=== PATIENT | female | born 1945 | race Caucasian/White ===

== ENCOUNTER → 2024-05-31 07:01 | Outpatient (REF) | payer MEDICARE, OTHER, SELFPAY ==
[2024-05-31 07:57] LABS: ALT (SGPT) 13 U/L (0-35); AST (SGOT) 24 U/L (14-36); Albumin 4.1 g/dl (3.5-5.0); Alkaline Phosphatase 93 U/L (38-126); Blood Urea Nitrogen 18 mg/dl (7-17); Calcium 9.7 mg/dl (8.4-10.2); Carbon Dioxide 27 mmol/L (22-30); Chloride 107 mmol/L (98-107); Glucose 93 mg/dl (70-99); HDL Cholesterol 73 mg/dl; LDL Cholesterol, Calculated 64 mg/dl; Potassium 3.7 mmol/L (3.5-5.1); Sodium 142 mmol/L (135-145); Total Bilirubin 0.9 mg/dl (0.2-1.3); Total Cholesterol 154 mg/dl (50-199); Total Protein 6.4 g/dl (6.3-8.2); Triglyceride 89 mg/dl (10-149); Very Low Density Lipoprotein 17 mg/dl (0-30); eGFR > 60.00
[2024-05-31 08:54] LABS: % Basophils 1.1 % (0-2); % Eosinophils 3.5 % (0-6); % Immature Granulocytes 0.3 % (0-0.5); % Lymphocytes 24.8 % (20.5-51.1); % Monocytes 10.8 % (1.7-9.3); % Neutrophils 59.5 % (42.2-75.2); Absolute Basophils 0.1 10^3/uL (0-0.2); Absolute Eosinophils 0.3 10^3/uL (0-0.7); Absolute Lymphocytes 1.8 10^3/uL (1.2-3.4); Absolute Monocytes 0.8 10^3/uL (0.1-0.6); Absolute Neutrophils 4.4 10^3/uL (1.4-6.5); Hematocrit 40.8 % (37.0-47.0); Hemoglobin 13.5 g/dL (12.0-16.0); Mean Corp Hgb Conc. 33.1 g/dL (33.0-37.0); Mean Corpuscular Hgb 29.8 pg (27.0-31.0); Mean Corpuscular Volume 90.1 fL (81.0-99.0); Mean Platelet Volume 9.9 fL (7.4-10.4); Nucleated Red Blood Cells % 0 %; Platelet Count 224 10^3/uL (130-400); Red Blood Cell Count 4.53 10^6/uL (4.20-5.40); Red Cell Dist. Width 14.4 % (11.5-14.5); White Blood Cell Count 7.4 10^3/uL (4.8-10.8)
== END ==
LOC: REG 07:01
PROVIDERS: ATTENDING PHYSICIAN Internal Medicine
DX: I10 Essential (primary) hypertension (principal); F32.0 Major depressive disorder, single episode, mild; H35.30 Unspecified macular degeneration; Z00.00 Encounter for general adult medical examination without abnormal findings
CPT/HCPCS: 36415; 80053; 80061; 85025

== ENCOUNTER 2024-06-19 12:55 | Inpatient (IN) | payer MEDICARE, OTHER, SELFPAY ==
[2024-06-19] VITALS (23 sets, daily range): BP systolic 86–149; BP diastolic 44–90; BMI 17.7
[2024-06-19] MEDS: TORADOL 15 MG IV (10:42)
[2024-06-19 10:44] LABS: % Basophils 0.5 % (0-2); % Eosinophils 1.6 % (0-6); % Immature Granulocytes 0.3 % (0-0.5); % Lymphocytes 13.2 % (20.5-51.1); % Neutrophils 70.4 % (42.2-75.2); Absolute Basophils 0.1 10^3/uL (0-0.2); Absolute Eosinophils 0.2 10^3/uL (0-0.7); Absolute Lymphocytes 1.4 10^3/uL (1.2-3.4); Absolute Monocytes 1.5 10^3/uL (0.1-0.6); Absolute Neutrophils 7.5 10^3/uL (1.4-6.5); Hematocrit 40.5 % (37.0-47.0); Hemoglobin 13.6 g/dL (12.0-16.0); Mean Corp Hgb Conc. 33.6 g/dL (33.0-37.0); Mean Corpuscular Hgb 29.6 pg (27.0-31.0); Mean Platelet Volume 10.5 fL (7.4-10.4); Nucleated Red Blood Cells % 0 %; Platelet Count 221 10^3/uL (130-400); Red Cell Dist. Width 14.2 % (11.5-14.5); White Blood Cell Count 10.6 10^3/uL (4.8-10.8)
[2024-06-19] MEDS: DUONEB 3 ML INH (10:44)
--- NOTE | 2024-06-19 10:51 | ED.GENMED ---
History of Present Illness
General
Chief Complaint: Breathing Problem
Time Seen by Provider: 06/19/24 10:10
History of Present Illness
History of Present Illness:
79-year-old female with history of aortic stenosis and hypertension presents to the emergency department for evaluation of difficulty breathing that began this morning. She apparently developed a sore throat and a dry cough 2 days ago and over the
past 2 days has progressively worsened. Cough is productive of purulent sputum. Denies any fevers or chills. Denies any chest pain or upper back pain. No ill contacts at home. And route by EMS significant rhonchi were noted and 3 sublingual
nitroglycerin were given. On arrival the patient is hypotensive.
Past History
Past History
ED Past Medical History: HTN, Psychiatric (anxiety) and Other (Glaucoma/macular degeneration)
ED Past Surgical History: Orthopedic (elbow fracture repair)
Patient has exhibited threatening behavior?: No
PSI?: No
Social History
Tobacco: Non-smoker
Alcohol: None
Drug: None
Personal:
Living: with family
Employment: Retired
Review of Systems
Review of Systems
Allergies reviewed?: Yes
All Other Systems: ROS reviewed and negative except as documented in HPI and ROS
Phy Exam
Physical Exam
Physical Exam:
GEN: Ill-appearing, tachypneic with respiratory distress
Eyes: PERRLA, EOMs intact, no scleral icterus
HENT: NCAT, oral mucosa moist, mild JVD
Lungs: Tachypneic with accessory muscle use, audible rhonchi heard throughout all lung nolasco
Cardiac: RRR, faintly heard systolic murmur, difficult to assess due to respiratory effort, no peripheral edema, thready peripheral pulses x 4
Abdomen: S, NT, ND, NABS, no masses or hepatosplenomegaly
Neuro: AO x 3
MSK: No gross deformity or ecchymosis. No edema. No digital clubbing
Skin: No rashes, petechiae. Normal color, no pallor or jaundice.
Psych: Calm, cooperative, proper hygiene
Scores
Heart Failure Risk
Heart Failure Risk Score: Not Applicable
Course
Orders/Labs/Results
Orders:
Orders
06/19/24 10:10
Electrocardiogram (*1) Urgent
Reason for Study: Shortness of Breath
EKG- Treatment ONCE
06/19/24 10:11
CR Chest Portable - 1 View Urgent
Comment:
Reason For Exam: SOB
Reason Study Needs to be Portable: Patient Unstable
06/19/24 10:19
COVID-19 Antigen Urgent
Source: Nasal Swab
Complete Blood Count/With Diff Urgent
Comprehensive Metabolic Panel Urgent
NT-proBNP Urgent
Troponin I Urgent
Influenza A+B Rapid Molecular Urgent
JAMEY Source: Nasal Swab
Specimen Description:
06/19/24 10:36
Ipratropium/Albuterol Sulfate [Duoneb] 3 ml INH R NOW ONE
Ketorolac [Toradol] 15 mg IV NOW STA
06/19/24 10:54
0.9% Sodium Chloride 500 ml [Nss] 500 ml IV BOLUS
06/19/24 11:04
Dexamethasone Sod Phosphate [Decadron] 6 mg IV NOW STA
06/19/24 12:27
Admit/Transfer Patient As Directed
Co-Sign Provider:
Level of Care: Inpatient admission
Assign to:: IMU- Intermediate Care
Physician / Group: eli
Diagnosis: acute hypoxic respiratory failure covid
Reason for Hospitalization: acute hypoxic respiratory failure covid
Expected length of stay greater than two midnights?: Yes
ELOS- Estimated Length of Stay in days: 2
I certify the patient meets the requirements for IP care: Yes
06/19/24 12:28
Code Status As Directed
Resuscitation Status: Full Code
PRN Pain Medication Management As Directed
May give lesser potent ordered pain med per pt: Yes
preference::
Protocol:: Medication orders for pain may be administered in a
manner that supports deferring to patient preference
when the pt is:
- Requesting an ordered lesser potent pain medication.
Least to most potent pain medications are defined
as: acetaminophen < NSAID < tramadol < opioids
(morphine, oxycodone, hydromorphone).
- Requesting a lesser dose of the same medication IF
ORDERED.
- Requesting a less intrusive route of administration
if both routes are prescribed by the provider (PO <
IV).
Abnormal Lab Results
06/19/24
10:19
MPV 10.5 H fL
(7.4-10.4)
Absolute Neuts (auto) 7.5 H 10^3/uL
(1.4-6.5)
Absolute Monos (auto) 1.5 H 10^3/uL
(0.1-0.6)
Lymphocytes % 13.2 L %
(20.5-51.1)
Monocytes % 14.0 H %
(1.7-9.3)
BUN 23 H mg/dl
(7-17)
Glucose 223 H mg/dl
(70-99)
Troponin I 0.102 H* ng/ml
SARS-CoV-2 Antigen Positive A
(Negative)
06/19/24 10:19
06/19/24 10:19
Vital Signs
Initial and Last Documented VS:
Initial Vital Signs
Pulse Resp BP
86 27 86/74
06/19/24 10:15 06/19/24 10:15 06/19/24 10:15
Last Documented Vital Signs
Pulse Resp BP Pulse Ox
69 27 102/58 98
06/19/24 12:15 06/19/24 12:15 06/19/24 12:15 06/19/24 12:15
MDM/Problems Addressed
MDM/Problems Addressed:
79-year-old female presents in acute respiratory distress. She was administered prehospital nitroglycerin due to suspected cardiogenic etiology and arrives with hypotension and no change to work of breathing. She does not appear to be volume
overloaded and lungs sound more rhonchorous and crackly. Workup revealed COVID-19 and no obvious chest x-ray findings to suggest infiltrates or vascular congestion. She did improve with supplemental oxygen and DuoNeb treatment. IV corticosteroids
administered. Transient hypotension did improve with fluids, I suspect this was on the basis of nitroglycerin administration coupled with her known aortic stenosis. Do not suspect acute pulmonary embolism or acute coronary syndrome. Troponin
elevation is likely on the basis of hypoxia as the patient has no chest pain. will be admitted to the hospitalist service for further management
Comment
Comment:
EKG independently interpreted by me shows a normal sinus rhythm at a rate of [address] depressions and questionable inferior ST depressions, some respiratory motion artifact limits interpretation. No ST elevations. QTc of 477. ST
depressions are more prominent than past EKG from 2021
*Critical Care Note
Total Time (30-74mins, 75-104mins- exclusive of procedures): 35 minutes
comment:
Critical care time: 35-minute
Critical care time was exclusive of: Separately billable procedures, treating other patients, and teaching time
Critical care was necessary to treat or prevent imminent or life-threatening deterioration of the following conditions: Respiratory failure with hypoxia
Critical care time spent personally by me on the following activities:
[x] Review of old charts
[x] Obtaining history from patient or surrogate
[x] Ordering and review of the laboratory studies
[x] Ordering and review of radiographic studies
[x] Ordering and performing treatments and interventions
[x] Patient patient's response to treatment
[x] Development of treatment plan with patient or surrogate
ED Attending Note
-
Portions of this chart may have been created with voice recognition software.� Occasional wrong word or��sound alike� substitutions may have occurred due to the inherent limitations of voice recognition software.
Discharge Plan
Departure
Patient Disposition: Admit
Date of Disposition: 06/19/24
Time of Disposition: 11:11
Admit to: IMU
Presentation/result/management discussed w/ accepting MD/DO: Hospitalist
Discharge Problem:
Acute hypoxemic respiratory failure, COVID-19
Prescriptions:
No Action
aspirin 81 mg Tablet,Delayed Release (Dr/Ec)
81 mg PO DAILY Qty: 60 0RF
carvedilol 6.25 mg tablet
6.25 mg PO BID Qty: 60 0RF
lisinopril 20 mg tablet
20 mg PO BID
nifedipine 30 mg Tablet Extended Release
30 mg PO DAILY Qty: 30 0RF
latanoprost 0.005 % Drops
1 drp BOTH EYES HS
dorzolamide-timolol 22.3-6.8 mg/mL Drops
1 drp BOTH EYES BID
spironolactone 50 mg Tablet
50 mg PO DAILY
atorvastatin 40 mg tablet
40 mg PO DAILY
Referrals:
Isac Jane MD [Family Provider] -
Interventions
Interventions:
*Risk Screen - Suicide Last Done: 06/19/24 10:52
*General Assessment Last Done: 06/19/24 10:52
*Neglect/Abuse Screening Last Done: 06/19/24 10:52
ED- Cardiac Assessment Last Done: 06/19/24 10:12
ED- Pulmonary Assessment Last Done: 06/19/24 10:12
Discharge Date and Time
Print Language: WELSH
[2024-06-19 10:53] LABS: ALT (SGPT) 16 U/L (0-35); AST (SGOT) 30 U/L (14-36); Alkaline Phosphatase 89 U/L (38-126); Blood Urea Nitrogen 23 mg/dl (7-17); Carbon Dioxide 28 mmol/L (22-30); Chloride 100 mmol/L (98-107); Estimated Creatinine Clearance 38 ml/min; Glucose 223 mg/dl (70-99); Potassium 3.7 mmol/L (3.5-5.1); Sodium 141 mmol/L (135-145); Total Bilirubin 1.1 mg/dl (0.2-1.3); Total Protein 6.4 g/dl (6.3-8.2); eGFR > 60.00
[2024-06-19 11:00] LABS: COVID-19 Antigen Positive (Negative)
[2024-06-19] MEDS: DECADRON 6 MG IV (11:23)
[2024-06-19] MEDS: NSS 500 IV (11:25)
[2024-06-19 11:31] LABS: NT-proBNP 2030 pg/ml; Troponin I 0.102 ng/ml
--- NOTE | 2024-06-19 12:33 | HPS.HSE ---
Family Physician
-
Family Physician: Dinesh Jane
Chief Complaint
-
shortness of breath
History of Present Illness
79-year-old female past medical history of aortic stenosis, hypertension, anxiety, glaucoma/macular degeneration, presented to the emergency room for difficulty breathing that started this morning. She developed a sore throat and dry cough 2 days
ago which has gotten worse. Cough is productive of purulent sputum. She denies any fevers or chills. Denies any chest pain or upper back pain. No sick contacts. Significant rhonchi were heard by EMS and 3 sublingual nitroglycerin were given en
route. On arrival patient is hypotensive. Patient denies nausea or vomiting diarrhea or abdominal pain.
Patient follows Dr. Will for moderate aortic stenosis.
Medical History
Past Medical History
Past Medical History: Reports Other (aortic stenosis, hypertension, anxiety, glaucoma/macular degeneration)
Past Surgical History: Reports Orthopedic
Social History
Tobacco: Former Smoker
Alcohol: Occasional
Drug: None
Family History
Family History: Not pertinent
Allergies / Home Medications
Allergies reflects when Allergies were last updated in [facility].
Home Medications with original date entered in [facility]
Allergy/Medication List:
Allergies
Allergy/AdvReac Type Severity Reaction Status Date / Time
No Known Allergies Allergy Unverified 07/25/22 17:05
Home Medications
aspirin 81 mg tablet,delayed release 81 mg PO DAILY #60 tabs 07/20/22
carvedilol 6.25 mg tablet 6.25 mg PO BID #60 tabs 07/20/22
lisinopril 20 mg tablet 20 mg PO BID 07/25/22
nifedipine 30 mg tablet,extended release 30 mg PO DAILY #30 tabs 07/27/22
atorvastatin 40 mg tablet 40 mg PO DAILY 06/19/24
dorzolamide 22.3 mg-timolol 6.8 mg/mL eye drops 1 drp BOTH EYES BID 06/19/24
latanoprost 0.005 % eye drops 1 drp BOTH EYES HS 06/19/24
spironolactone 50 mg tablet 50 mg PO DAILY 06/19/24
Review of Systems
-
History Source: Patient
A 12 point ROS was completed and negative except as noted: Yes
Constitutional: Reports No Symptoms
EENT: Reports No Symptoms
Respiratory: Reports See HPI
Cardiac: Reports See HPI
Abdomen/GI: Reports No Symptoms
: Reports No Symptoms
Musculoskeletal: Reports No Symptoms
Skin: Reports No Symptoms
Neurological: Reports No Symptoms
Endocrine: Reports No Symptoms
Hematologic/Lymphatic: Reports No Symptoms
Psych: Reports No Symptoms
Physical Exam
Vital Signs
Vital Signs
Pulse Resp BP Pulse Ox
69 27 102/58 98
06/19/24 12:15 06/19/24 12:15 06/19/24 12:15 06/19/24 12:15
Physical Exam
General: Well Developed, Well Nourished and No Apparent Distress
HEENT: NormoCephalic, Moist mucous membranes and Atraumatic
Respiratory: Rhonchi
Cardiac: S1/S2 and Regular Rhythm; No Murmur or Rub
GI: Soft, Non Tender, Non Distended and Normal Bowel Sounds; No Organomegaly
Rectal: Deferred by Provider
Musculoskeletal: No Clubbing, No Cyanosis and No Edema
Skin: No Rash
Neuro: Nonfocal/grossly intact
Laboratory Results
-
06/19/24 10:19
06/19/24 10:19
Laboratory Results
Total Bilirubin 1.1 mg/dl (0.2-1.3) 06/19/24 10:19
AST 30 U/L (14-36) 06/19/24 10:19
ALT 16 U/L (0-35) 06/19/24 10:19
Alkaline Phosphatase 89 U/L (38-126) 06/19/24 10:19
Troponin I 0.102 ng/ml H* 06/19/24 10:19
Data Reviewed
-
Lab Data: Labs Reviewed by me
Old Records: Reviewed
Impression/Plan
-
IMPRESSION:
PLAN:
# Hypoxic respiratory failure secondary to COVID
-Currently day 3 of symptoms
-Chest x-ray shows minor bibasilar opacity suggesting subsegmental atelectasis, cannot support pneumonia/pneumonitis
-Patient on 5 L
-Dexamethasone, remdesivir
# Nonischemic myocardial injury versus NSTEMI in the setting of COVID/hypoxia
-No chest pain so unclear why nitroglycerin was given on route to hospital
-EKG shows ST depressions in leads V4 to V6
-Troponin 0.1
-Trend troponins
-Continue aspirin
-Cardiology consulted
# Hypotension secondary to nitroglycerin by EMS
-Improved with IV fluids, hold further fluids
Moderate aortic stenosis
Essential hypertension
-Hold lisinopril, nifedipine, spironolactone
-Continue Coreg
Anxiety
Glaucoma/macular degeneration
-Continue eyedrops
Former smoker
Full code
DVT prophylaxis�heparin
Regular diet
--- NOTE | 2024-06-19 15:15 | PTCARENOTE ---
Rec'd pt on admission from ED. 94% on 4L NC. Dyspnic at rest and with exertion. mild sore throat pain present. AAO x3. Pt with mac degeneration. very poor vision. Able to verbalize that she could see the call driscoll button for the nurse well, placed
call driscoll in her left hand. oriented to unit. Agrees to use call driscoll for assistance to the bathroom.
[2024-06-19] MEDS: VEKLURY 250 MG IV (16:25)
[2024-06-19] MEDS: NSS 30 IV (16:25)
[2024-06-19 17:31] LABS: Troponin I 0.095 ng/ml
[2024-06-19] MEDS: COREG 6.25 MG PO (20:20)
[2024-06-19] MEDS: HEPARIN 5000 UNITS SC (20:20)
[2024-06-19] MEDS: COSOPT EYE DROPS 1 DROP BOTH EYES (20:23)
[2024-06-19] MEDS: TYLENOL 650 MG PO (20:28)
[2024-06-19 22:36] LABS: Troponin I 0.076 ng/ml
[2024-06-20] VITALS (13 sets, daily range): BP systolic 96–162; BP diastolic 41–87
[2024-06-20] MEDS: XALATAN OPHTHALMIC SOLUTION 1 DROP BOTH EYES ×2 (00:27→21:42)
--- NOTE | 2024-06-20 01:28 | PTCARENOTE ---
Pt having complaints of soar throat. Tylenol given along with cold ice water. Reassessment Pt appeared to be sleeping comfortably respirations even an unlabored. Assessment care and vitals as charted.
[2024-06-20 05:31] LABS: % Basophils 0.2 % (0-2); % Immature Granulocytes 0.2 % (0-0.5); % Lymphocytes 12.3 % (20.5-51.1); % Monocytes 10.3 % (1.7-9.3); Absolute Lymphocytes 0.6 10^3/uL (1.2-3.4); Absolute Monocytes 0.5 10^3/uL (0.1-0.6); Absolute Neutrophils 3.5 10^3/uL (1.4-6.5); Hematocrit 35.1 % (37.0-47.0); Hemoglobin 11.6 g/dL (12.0-16.0); Mean Corpuscular Hgb 29.5 pg (27.0-31.0); Mean Corpuscular Volume 89.3 fL (81.0-99.0); Mean Platelet Volume 10.4 fL (7.4-10.4); Nucleated Red Blood Cells % 0 %; Platelet Count 164 10^3/uL (130-400); Red Blood Cell Count 3.93 10^6/uL (4.20-5.40); Red Cell Dist. Width 14.1 % (11.5-14.5); White Blood Cell Count 4.6 10^3/uL (4.8-10.8)
[2024-06-20 05:49] LABS: ALT (SGPT) 13 U/L (0-35); AST (SGOT) 28 U/L (14-36); Albumin 3.2 g/dl (3.5-5.0); Alkaline Phosphatase 72 U/L (38-126); Blood Urea Nitrogen 23 mg/dl (7-17); Carbon Dioxide 23 mmol/L (22-30); Chloride 109 mmol/L (98-107); Estimated Creatinine Clearance 43 ml/min; Glucose 122 mg/dl (70-99); Potassium 3.8 mmol/L (3.5-5.1); Sodium 144 mmol/L (135-145); Total Bilirubin 0.5 mg/dl (0.2-1.3); Total Protein 5.6 g/dl (6.3-8.2); eGFR > 60.00
--- NOTE | 2024-06-20 07:47 | CON.CAR ---
Addendum entered and electronically signed by Briseida Rajput DO 06/20/24 16:04:
I saw and examined the patient.
The Car Salesman's note was reviewed and I agree with the note.
Comment: Patient seen and examined with at bedside in COVID isolation room. Patient came to [facility] yesterday morning with increased SOB and was admitted with COVID and cardiology has been consulted for elevated Troponin. Patient says she saw
her PCP 06/09/24 and that 2-3 days later she started to experience URI symptoms, but didn't start with SOB until 2 days ago. Patient awoke in respiratory distress Thursday and her called 911, she was hypoxic at 75% on RA when they
arrived. No chest pain. Patient was given NTG SL x3 doses total for diffuse ST depressions and possible acute HF and EMS reports states that pulse ox and respiratory rate improved along with administration of NRB. In [facility] the initial Troponin was
0.102 and trended down thereafter. pro-BNP was 2030. ECG with anterolateral ST depression in SR as reviewed by me. No chest pain and patient was hypotensive in the ER and was given NSS 500 mL bolus x 1. BP improved and patient now HTN. Patient then
tested positive for COVID. Patient was given Decadron 6 mg IV x 1 in the ER and also started on remdesivir.
GEN: NAD. AAOx3
HEENT: EOMI, MMM, some teeth broken and missing
LUNGS: Wearing oxygen at 4 L NC. Diffuse wheeze with rhonchi, no rales
CV: Reg, S1/S2, 3/6 syst LSB
ABD: soft, BS+, NT, ND
EXT: Trace B/L LE edema.
Plan:
-Patient came to [facility] yesterday morning with increased SOB and was admitted with COVID and cardiology has been consulted for elevated Troponin.
Hypoxic respiratory failure with COVID infection
-Still requiring O2 supplementation currently 5 L nasal cannula
-On Decadron/remdesivir day 2 per primary
-Wean O2 as able
Hypotension now resolved secondary to nitroglycerin administered by EMS
- monitor blood pressure trends
Abnormal cardiac troponin, 0.102 with abnormal EKG
-No chest pain
-manage as a nonischemic myocardial injury Troponin elevation.
-Check echo this admission, ordered by me
-Outpatient ischemic evaluation
-Patient with h/o moderate and peak/mean were 46/23 mmHg with ADELFO 1.2 cm sq by echo 09/2023.
-HFpEF in the setting of COVID
-pro-BNP was 2030 on admission and patient has mild edema.
-Will give Lasix 40 mg IV x 1 and hold Aldactone. Reassess in the morning. Patient was not on an loop diuretic prior to this admission
Original Note:
Consultation
Consultation Request
Date/Time Consultation Requested: 06/19/24 at 1446
Date/Time Consultation Performed: 06/20/24 at 0747
Requesting Provider: Dr. Santos
Performing Provider: Dr. Rajput
Reason for Consultation: Elevated Troponin, possible acute HF, moderate
Medical History
-
History of Present Illness:
Patient came to [facility] yesterday morning with increased SOB and was admitted with COVID and cardiology has been consulted for elevated Troponin. Patient says she saw her PCP 06/09/24 and that 2-3 days later she started to experience URI symptoms, but
didn't start with SOB until 2 days ago. Patient awoke in respiratory distress Thursday morning and her called 911, she was hypoxic at 75% on RA when they arrived. No chest pain. Patient was given NTG SL x3 doses total for diffuse ST
depressions and possible acute HF and EMS reports states that pulse ox and respiratory rate improved along with administration of NRB. In [facility] the initial Troponin was 0.102 and trended down thereafter. pro-BNP was 2030. ECG with anterolateral ST
depression in SR as reviewed by me. No chest pain and patient was hypotensive in the ER and was given NSS 500 mL bolus x 1. BP improved and patient now HTN. Patient then tested positive for COVID. Patient was given Decadron 6 mg IV x 1 in the ER
and also started on remdesivir.
PMH:
Moderate , peak/mean 46/23 mmHg and ADELFO 1.2 cm sq by echo 08/11/23
Mild to moderate aortic regurgitation
HTN
Former smoker
Anxiety
Past Medical History
Past Medical History: Other (in HPI)
Past Surgical History: Orthopedic (left ORIF 11/2019)
Social History
Tobacco: Former Smoker
Alcohol: None
Drug: None
Personal:
Living: With Family
Family History
Family History: CAD and Diabetes
Allergies / Home Medications
Allergy/AdvReac Type Severity Reaction Status Date / Time
No Known Allergies Allergy Unverified 07/25/22 17:05
�Medication �Instructions �Recorded �Confirmed �Type
aspirin 81 mg tablet,delayed 81 mg PO DAILY #60 tabs 07/20/22 06/19/24 Rx
release
carvedilol 6.25 mg tablet 6.25 mg PO BID #60 tabs 07/20/22 06/19/24 Rx
lisinopril 20 mg tablet 20 mg PO BID 07/25/22 06/19/24 History
nifedipine 30 mg tablet,extended 30 mg PO DAILY #30 tabs 07/27/22 06/19/24 Rx
release
atorvastatin 40 mg tablet 40 mg PO DAILY 06/19/24 06/19/24 History
dorzolamide 22.3 mg-timolol 6.8 1 drp BOTH EYES BID 06/19/24 06/19/24 History
mg/mL eye drops
latanoprost 0.005 % eye drops 1 drp BOTH EYES HS 06/19/24 06/19/24 History
spironolactone 50 mg tablet 50 mg PO DAILY 06/19/24 06/19/24 History
Review of Systems
-
History Source: Patient
All other systems: Negative unless noted
Physical Exam
Vital Signs
Temp Pulse Resp BP Pulse Ox
97.8 F 74 33 142/87 100
06/20/24 03:50 06/20/24 06:00 06/20/24 06:00 06/20/24 06:00 06/20/24 06:00
GEN: NAD. AAOx3
HEENT: EOMI, MMM, some teeth broken and missing
LUNGS: Wearing oxygen at 4 L NC. Diffuse wheeze with rhonchi, no rales
CV: Reg, S1/S2, 3/6 syst LSB
ABD: soft, BS+, NT, ND
EXT: Trace B/L LE edema. No clubbing, cyanosis or lesions B/L
NEURO: Gross non-focal
SKIN: Warm, dry and pink. No rash
Lab Results
06/20/24 04:53
06/20/24 04:53
Troponin I Cancelled 06/20/24 02:46
Zbn-H-Dxpnmvrxofp Pept 2030 pg/ml 06/19/24 10:19
Impression / Plan
-
PCP: Dr. Jane
Cardiology: Dr. Pearson
Impression:
Acute hypoxic respiratory failure
COVID infection
Elevated Troponin
Hypotension on admission, iatrogenic related EMS administration of Nitro-tab SL
Possible acute HFpEF
Moderate , peak/mean 46/23 mmHg and ADELFO 1.2 cm sq by echo 08/11/23
Mild to moderate aortic regurgitation
HTN
Former smoker
Anxiety
Echo 08/11/23: EF 60 to 65%, mild concentric LVH, normal RV size and function, moderate with peak/mean 46/23 mmHg and ADELFO 1.2 cm SQ, mild to moderate aortic regurgitation
Plan:
-Patient came to [facility] yesterday morning with increased SOB and was admitted with COVID and cardiology has been consulted for elevated Troponin. Patient says she saw her PCP 06/09/24 and that 2-3 days later she started to experience URI symptoms, but
didn't start with SOB until 2 days ago. Patient awoke in respiratory distress Thursday morning and her called 911, she was hypoxic at 75% on RA when they arrived. No chest pain. Patient was given NTG SL x3 doses total for diffuse ST
depressions and possible acute HF and EMS reports states that pulse ox and respiratory rate improved along with administration of NRB. In [facility] the initial Troponin was 0.102 and trended down thereafter. pro-BNP was 2030. ECG with anterolateral ST
depression in SR as reviewed by me. No chest pain and patient was hypotensive in the ER and was given NSS 500 mL bolus x 1. BP improved and patient now HTN. Patient then tested positive for COVID. Patient was given Decadron 6 mg IV x 1 in the ER
and also started on remdesivir.
-Troponin was 0.102 on admission and trended down thereafter. ECG with anterolateral ST depression, recheck ECG. No chest pain. Check echo. For now will manage as a nonischemic myocardial injury Troponin elevation.
-Recheck ECG now, ordered by me
-Check echo this admission, ordered by me
-Patient with h/o moderate and peak/mean were 46/23 mmHg with ADELFO 1.2 cm sq by echo 09/2023.
-pro-BNP was 2030 on admission and patient has mild edema. Consider a dose of Lasix 40 mg IV x1. Patient was not taking a diuretic prior to admission.
-Patient with hypotension on admission due to pre-hospital NTG SL x1. Now with HTN and her outpatient doses of Coreg 6.25 mg BID, lisinopril 20 mg BID, nifedipine 30 mg daily and spironolactone 50 mg daily have been continued. Of note,
spironolactone was started 09/2023, but dose has changed several times in part due to her pharmacist giving patient and incorrect information and most recently her PCP decreased the dose to 25 mg daily due to polyuria. Agree with continuing
higher dose of spironolactone for now and follow BP.
-Patient is ordered Decadron and remdesivir for her COVID infection.
[2024-06-20] MEDS: ASPIR LOW (ENTERIC COATED) 81 MG PO (08:25)
[2024-06-20] MEDS: LIPITOR 40 MG PO (08:25)
[2024-06-20] MEDS: HEPARIN 5000 UNITS SC (08:26)
[2024-06-20] MEDS: COSOPT EYE DROPS 1 DROP BOTH EYES ×2 (08:26→20:16)
[2024-06-20] MEDS: COREG 6.25 MG PO (08:27)
--- NOTE | 2024-06-20 09:01 | W.PN.HOSP.TC ---
Today's Communication/Plan
-
Stable for telemetry
Assessment / Plan
Assessment / Plan
HPI: 79-year-old female past medical history of aortic stenosis, hypertension, anxiety, glaucoma/macular degeneration, presented to the emergency room for difficulty breathing that started this morning. She developed a sore throat and dry cough 2
days ago which has gotten worse. Cough is productive of purulent sputum. She denies any fevers or chills. Denies any chest pain or upper back pain. No sick contacts. Significant rhonchi were heard by EMS and 3 sublingual nitroglycerin were
given en route. On arrival patient is hypotensive. Patient denies nausea or vomiting diarrhea or abdominal pain.
#Acute hypoxic respiratory failure
#Acute coronavirus pneumonia
Continue Decadron/remdesivir day 2
Was initially requiring 5 L of oxygen, wean as tolerated
Patient does not wear oxygen at home
# Nonischemic myocardial injury versus NSTEMI in the setting of COVID/hypoxia
No chest pain so unclear why nitroglycerin was given on route to hospital
EKG shows ST depressions in leads V4 to V6
Appreciate cardiology input, repeat EKG, check echo
# Hypotension secondary to nitroglycerin by EMS
Resolved
Moderate aortic stenosis
-Patient follows Dr. Will
Essential hypertension
-Resume lisinopril, nifedipine, spironolactone
-Hold Coreg
Anxiety
Glaucoma/macular degeneration
-Continue eyedrops
Former smoker
DVT prophylaxis�subcu Lovenox
Full code
Updated at bedside 06/20
Total time spent to see the patient on the floor, examine the patient, review data and lab results, discuss treatment plan with patient, nursing staff around 51 minutes.
Physical Exam
General: Appears to not feel well, no acute distress
HEENT: Normocephalic, Atraumatic, EOMI, MMM
Respiratory: Clear to Auscultation bilaterally
Cardiac: Normal S1/S2, Regular Rate and Rhythm
GI: Soft, Nontender, Nondistended, Normal Bowel Sounds
Extremities: No Clubbing, Cyanosis
Neuro: Nonfocal/Grossly Intact
Psych: Calm, Cooperative
Anticipated Discharge: > 48 hours
Subjective/Interval History
-
Date of Service: June 20, 2024
Patient complains of cough, shortness of breath. No chest pain. No fever, no vomiting.
Objective Data
-
Labs:
Laboratory Results
06/20/24
04:53
WBC 4.6 L
Hgb 11.6 L
Hct 35.1 L
Plt Count 164 D
Sodium 144
Potassium 3.8
Chloride 109 H
Carbon Dioxide 23
BUN 23 H
Creatinine 0.7
Glucose 122 H
Calcium 8.0 L
Total Bilirubin 0.5
AST 28
ALT 13
Alkaline Phosphatase 72
Vital Signs:
Vital Signs
Temp Pulse Resp BP Pulse Ox
97.8 F 81 23 162/75 100
06/20/24 03:50 06/20/24 08:27 06/20/24 08:00 06/20/24 08:27 06/20/24 08:00
I&O
06/19/24 06/20/24 06/21/24
06:59 06:59 06:59
Intake Total 220 / 220
Balance 220 / 220
[2024-06-20] MEDS: TYLENOL 650 MG PO ×2 (10:06→17:16)
[2024-06-20] MEDS: ZESTRIL 20 MG PO ×2 (11:10→20:15)
[2024-06-20] MEDS: ALDACTONE 50 MG PO (11:11)
[2024-06-20] MEDS: PROCARDIA XL (EXTENDED RELEASE) 30 MG PO (11:11)
[2024-06-20] MEDS: DECADRON 6 MG IV (11:12)
[2024-06-20] MEDS: CHLORASEPTIC/SORE THROAT SPRAY 1 SPRAY PO (12:19)
[2024-06-20] MEDS: ANESTHETIC LOZENGE 1 LOZENGE PO ×4 (12:21→21:41)
[2024-06-20] MEDS: VEKLURY 250 MG IV (12:22)
[2024-06-20] MEDS: NSS 30 IV (13:43)
[2024-06-20] MEDS: ProAIR HFA INHALER 4 PUFF INH ×2 (16:22→19:42)
[2024-06-20] MEDS: LOVENOX 30 MG SC (17:17)
--- NOTE | 2024-06-20 17:30 | CM ---
Patient with Dx Acute hypoxic respiratory failure, Acute coronavirus pneumonia, Nonischemic myocardial injury vs NSTEMI, HF. Covid + 06/19. O2 2L. Receiving IV Decadron, Remdesivir.
Spoke with patient's Connor;
the patient resides with her in a 2 story house with 5 TIERA.
The patient has been independent in ADLs and ambulation, however she has poor vision.
says patient is currently very weak and he doubts she could walk at this time.
The patient has no DME.
Prior [facility].
No prior SNF.
PCP - Tyson Jane
Pharmacy - [facility]
The patient may benefit from PT/OT Evals---> message to Dr Santos.
Plan follow up after seen by PT/OT.
--- NOTE | 2024-06-20 20:51 | PTCARENOTE ---
Report given to 2N RN. Pt being transported via wheelchair, with all of her belongings.
[2024-06-21] MEDS: ANESTHETIC LOZENGE 1 LOZENGE PO ×4 (03:31→21:04)
[2024-06-21 03:36] VITALS: BP 161/81
[2024-06-21] MEDS: ProAIR HFA INHALER 1 PUFF INH (03:57)
[2024-06-21 07:45] VITALS: BP 169/78
[2024-06-21] MEDS: ProAIR HFA INHALER 4 PUFF INH ×3 (07:47→15:20)
[2024-06-21] MEDS: COSOPT EYE DROPS 1 DROP BOTH EYES ×2 (08:20→20:57)
[2024-06-21] MEDS: ALDACTONE 50 MG PO (08:21)
[2024-06-21] MEDS: LIPITOR 40 MG PO (08:21)
[2024-06-21] MEDS: ASPIR LOW (ENTERIC COATED) 81 MG PO (08:21)
[2024-06-21] MEDS: ZESTRIL 20 MG PO ×2 (08:22→20:58)
[2024-06-21] MEDS: PROCARDIA XL (EXTENDED RELEASE) 30 MG PO (08:22)
--- NOTE | 2024-06-21 09:06 | W.PN.HOSP.TC ---
Today's Communication/Plan
-
see bold
Assessment / Plan
Assessment / Plan
HPI: 79-year-old female past medical history of aortic stenosis, hypertension, anxiety, glaucoma/macular degeneration, presented to the emergency room for difficulty breathing that started this morning. She developed a sore throat and dry cough 2
days ago which has gotten worse. Cough is productive of purulent sputum. She denies any fevers or chills. Denies any chest pain or upper back pain. No sick contacts. Significant rhonchi were heard by EMS and 3 sublingual nitroglycerin were
given en route. On arrival patient is hypotensive. Patient denies nausea or vomiting diarrhea or abdominal pain.
#Acute hypoxic respiratory failure
#Acute coronavirus pneumonia
Continue Decadron/remdesivir day 3, then stop remdesivir
Was initially requiring 5 L of oxygen, now on 2.5 L, wean as tolerated
Patient does not wear oxygen at home
Continue bronchodilators, supportive care
Isolate through 06/28
#Nonischemic myocardial injury versus NSTEMI in the setting of COVID/hypoxia
No chest pain so unclear why nitroglycerin was given on route to hospital
EKG shows ST depressions in leads V4 to V6
Appreciate cardiology input, repeat EKG, check echo
#Hypotension secondary to nitroglycerin by EMS
Resolved
#Weakness
PT/OT
Moderate aortic stenosis
-Patient follows Dr. Will
Essential hypertension
-Resumed lisinopril, nifedipine, spironolactone
-Hold Coreg
Anxiety
Glaucoma/macular degeneration
-Continue eyedrops
Former smoker
DVT prophylaxis�subcu Lovenox
Full code
Updated at bedside 06/20
Total time spent to see the patient on the floor, examine the patient, review data and lab results, discuss treatment plan with patient, nursing staff around 50 minutes.
Physical Exam
General: Appears to not feel well, no acute distress
HEENT: Normocephalic, Atraumatic, EOMI, MMM
Respiratory: Diffuse scattered wheezing
Cardiac: Normal S1/S2, Regular Rate and Rhythm
GI: Soft, Nontender, Nondistended, Normal Bowel Sounds
Extremities: No Clubbing, Cyanosis
Neuro: Nonfocal/Grossly Intact
Psych: Calm, Cooperative
Anticipated Discharge: 24 - 48 hours
Subjective/Interval History
-
Date of Service: June 21, 2024
Objective Data
-
Vital Signs:
Vital Signs
Temp Pulse Resp BP Pulse Ox
98.0 F 88 15 169/78 98
06/21/24 07:45 06/21/24 08:22 06/21/24 08:15 06/21/24 08:22 06/21/24 08:15
I&O
06/20/24 06/21/24 06/22/24
06:59 06:59 06:59
Intake Total 220 / 220 720 / 720
Balance 220 / 220 720 / 720
[2024-06-21 11:35] VITALS: BP 137/77
[2024-06-21 13:11] VITALS: BP 135/63; PULSE 73; O2SAT 95
[2024-06-21] MEDS: MUCINEX 1200 MG PO ×2 (13:15→20:57)
[2024-06-21] MEDS: DECADRON 6 MG IV (13:15)
[2024-06-21] MEDS: VEKLURY 250 MG IV (13:15)
--- NOTE | 2024-06-21 13:15 | PN.CDI ---
CDI
- -
CDI:
Physician Documentation Request
Admit Date: 06/19/24 12:55
Dear Doctor Do,
Please review the following and provide your response in the progress notes.
Clinical Indicators:
Height: 5 ft
Weight:90 lb
BMI:17.7
Other Clinical Notes: Nutrition consult 06/20,' Current BW: (06/19) 90 lbs 9.76 oz BMI: 17.7 (underweight)...'
If possible, please provide an associated diagnosis related to the abnormal BMI, such as:
BMI < or = to 19
Underweight
Cachectic
- Other
Use of terms such as suspected, likely, concern for, or probable (associated with a specific diagnosis that is being evaluated, monitored, or treated as if it exists) are acceptable and can be coded in the inpatient setting, when documented at the
time of discharge.
Thank you,
Mariely Smith RN
CDI Specialist
[facility]
Please use your independent medical judgment in providing your response.
[2024-06-21] MEDS: NSS 30 IV (13:17)
--- NOTE | 2024-06-21 13:40 | CM ---
Reviewed the chart notes. PT evaluation completed. PT will follow while in-house. Patient ambulated independently without any device. CM continues to be available to patient/family and is monitoring medical plan for needs at discharge.
Plan: Discharge to home when medically stable. Continues on supplemental O2.
--- NOTE | 2024-06-21 15:36 | W.PN.CARDCBS ---
Addendum entered and electronically signed by Roly Rose MD 06/21/24 16:30:
I saw and examined the patient.
The DENSITOMETER READER or PA's note was reviewed and I agree with the note.
Comment: General: Well developed, well nourished in NAD.
Neck: Supple, no JVD, HJR, carotids +2 B/L, no bruits bilaterally.
Heart: Non displaced PMI, RRR, no murmurs, No S3, S4, no rubs.
Lungs: Scattered rhonchi
Extremities: No clubbing, cyanosis or edema bilaterally.
Neuro: Grossly nonfocal, awake, alert and oriented x3.
Echocardiogram is essentially unchanged with perhaps a little worsening of aortic stenosis. Suspect symptoms due to COVID. Troponin elevation non NE ischemic injury.
Will sign off, call with questions. Patient has follow-up in our office.
Original Note:
Today's Communication / Plan
-
No additional Lasix for now, but cont higher dose spironolactone 50 mg daily
Impression / Plan
-
PCP: Dr. Jane
Cardiology: Dr. Pearson
Impression:
Acute hypoxic respiratory failure
COVID infection
Elevated Troponin
Hypotension on admission, iatrogenic related EMS administration of Nitro-tab SL
Possible acute HFpEF
Moderate , peak/mean 46/23 mmHg and ADELFO 1.2 cm sq by echo 08/11/23
Mild to moderate aortic regurgitation
HTN
Former smoker
Anxiety
Echo 08/11/23: EF 60 to 65%, mild concentric LVH, normal RV size and function, moderate with peak/mean 46/23 mmHg and ADELFO 1.2 cm SQ, mild to moderate aortic regurgitation
Echo 06/21/24: EF 60-65%, mod peak/mean 57/29 mmHg, ADELFO 0.9 cm sq, mild aortic regurgitation, mild TR with PAP 43 mmHg
Plan:
-Hypoxia improved with combination of steroids, remdesivir and Lasix IV.
-Weight down about 1 lb after Lasix 40 mg IV x1 on 06/20/24. Patient was not taking a loop diuretic prior to admission. BP and Cre stable. No additional Lasix IV at this time.
-Hypotension on admission due to NTG SL x3 given by EMS. Improved and then with HTN this admission. Outpatient doses of Coreg 6.25 mg BID, lisinopril 20 mg BID, nifedipine 30 mg daily and spironolactone 50 mg daily have been continued.
-Of note, spironolactone was started 09/2023, but dose has changed several times in part due to her pharmacist giving patient and incorrect information and most recently her PCP decreased the dose to 25 mg daily due to polyuria. Agree with
continuing higher dose of spironolactone for now and follow BP.
-Troponin was 0.102 on admission and trended down thereafter. ECG with stable anterolateral ST changes. No WMA on echo. No chest pain. Will manage as a nonischemic myocardial injury Troponin elevation.
-Echo repeated and is only a bit worse
HPI: Patient came to [facility] yesterday morning with increased SOB and was admitted with COVID and cardiology has been consulted for elevated Troponin. Patient says she saw her PCP 06/09/24 and that 2-3 days later she started to experience URI symptoms,
but didn't start with SOB until 2 days ago. Patient awoke in respiratory distress Thursday morning and her called 911, she was hypoxic at 75% on RA when they arrived. No chest pain. Patient was given NTG SL x3 doses total for diffuse ST
depressions and possible acute HF and EMS reports states that pulse ox and respiratory rate improved along with administration of NRB. In [facility] the initial Troponin was 0.102 and trended down thereafter. pro-BNP was 2030. ECG with anterolateral ST
depression in SR as reviewed by me. No chest pain and patient was hypotensive in the ER and was given NSS 500 mL bolus x 1. BP improved and patient now HTN. Patient then tested positive for COVID. Patient was given Decadron 6 mg IV x 1 in the ER
and also started on remdesivir.
Progress Note - Income Tax Administrator
Subjective
Date of Service: June 21, 2024
No chest pain
Objective
Labs:
06/20/24 04:53
06/20/24 04:53
Labs
Hgb 11.6 g/dL (12.0-16.0) L 06/20/24 04:53
Hct 35.1 % (37.0-47.0) L 06/20/24 04:53
Plt Count 164 10^3/uL (130-400) D 06/20/24 04:53
Sodium 144 mmol/L (135-145) 06/20/24 04:53
Potassium 3.8 mmol/L (3.5-5.1) 06/20/24 04:53
BUN 23 mg/dl (7-17) H 06/20/24 04:53
Creatinine 0.7 mg/dL (0.6-1.0) 06/20/24 04:53
Glucose 122 mg/dl (70-99) H 06/20/24 04:53
Troponins
06/19/24 06/19/24 06/19/24
10:19 16:53 21:57
Troponin I 0.102 H* 0.095 H* 0.076 H*
06/20/24
02:46
Troponin I Cancelled
Vital Signs and I&O:
Vital Signs
Temp Pulse Resp BP Pulse Ox
98.1 F 78 16 137/77 98
06/21/24 11:35 06/21/24 15:34 06/21/24 15:34 06/21/24 11:35 06/21/24 15:34
Vital Signs
Temp Pulse Resp BP Pulse Ox
98.1 F 78 16 137/77 98
06/21/24 11:35 06/21/24 15:34 06/21/24 15:34 06/21/24 11:35 06/21/24 15:34
Intake & Output
06/19/24 06/20/24 06/21/24 06/22/24
06:59 06:59 06:59 06:59
Intake Total 220 / 220 720 / 720
Balance 220 / 220 720 / 720
Physical Exam
Physical Exam
GEN: AAOx3
HEENT: MMM, some teeth broken and missing
LUNGS: Wearing oxygen at 2.5L NC.
CV: SR on tele
ABD: ND
EXT: Trace B/L LE edema
NEURO: Gross non-focal
SKIN: No rash
[2024-06-21 15:45] VITALS: BP 143/67
[2024-06-21] MEDS: LOVENOX 30 MG SC (18:08)
[2024-06-21] MEDS: ANESTHETIC LOZENGE PO ×2 (18:08→18:17)
[2024-06-21] MEDS: ProAIR HFA INHALER INH (20:19)
[2024-06-21] MEDS: XALATAN OPHTHALMIC SOLUTION 1 DROP BOTH EYES (22:11)
[2024-06-21 23:41] VITALS: BP 126/64
[2024-06-22] MEDS: ANESTHETIC LOZENGE PO ×3 (00:59→11:43)
[2024-06-22 03:25] VITALS: BP 123/71
[2024-06-22 07:05] LABS: Blood Urea Nitrogen 31 mg/dl (7-17); Calcium 8.7 mg/dl (8.4-10.2); Carbon Dioxide 26 mmol/L (22-30); Chloride 106 mmol/L (98-107); Estimated Creatinine Clearance 43 ml/min; Glucose 123 mg/dl (70-99); Magnesium 2.2 mg/dl (1.6-2.3); Potassium 3.5 mmol/L (3.5-5.1); eGFR > 60.00
[2024-06-22 07:09] LABS: Procalcitonin 0.79 ng/ml (0.0-0.25)
[2024-06-22 07:17] LABS: Sodium 144 mmol/L (135-145)
[2024-06-22 07:40] VITALS: BP 185/95
[2024-06-22] MEDS: ProAIR HFA INHALER INH (07:42)
[2024-06-22] MEDS: ZESTRIL 20 MG PO ×2 (08:06→20:10)
[2024-06-22] MEDS: LIPITOR 40 MG PO (08:06)
[2024-06-22] MEDS: ALDACTONE 50 MG PO (08:06)
[2024-06-22] MEDS: MUCINEX 1200 MG PO ×2 (08:06→20:09)
[2024-06-22] MEDS: ASPIR LOW (ENTERIC COATED) 81 MG PO (08:06)
[2024-06-22] MEDS: PROCARDIA XL (EXTENDED RELEASE) 30 MG PO (08:06)
[2024-06-22] MEDS: COSOPT EYE DROPS 1 DROP BOTH EYES ×2 (08:07→20:11)
[2024-06-22] MEDS: ANESTHETIC LOZENGE 1 LOZENGE PO ×3 (08:07→20:10)
--- NOTE | 2024-06-22 08:26 | W.PN.HOSP.TC ---
Today's Communication/Plan
-
see bold
Assessment / Plan
Assessment / Plan
HPI: 79-year-old female past medical history of aortic stenosis, hypertension, anxiety, glaucoma/macular degeneration, presented to the emergency room for difficulty breathing that started this morning. She developed a sore throat and dry cough 2
days ago which has gotten worse. Cough is productive of purulent sputum. She denies any fevers or chills. Denies any chest pain or upper back pain. No sick contacts. Significant rhonchi were heard by EMS and 3 sublingual nitroglycerin were
given en route. On arrival patient is hypotensive. Patient denies nausea or vomiting diarrhea or abdominal pain.
#Acute hypoxic respiratory failure
#Acute coronavirus pneumonia
Status post remdesivir x 3 days
Continue Decadron day 4
Was initially requiring 5 L of oxygen, now on 2 L, wean as tolerated
Procalcitonin elevated, will start Rocephin day 1 to cover for bacterial superinfection
Patient does not wear oxygen at home
Continue bronchodilators, supportive care
Isolate through 06/28
#Troponin elevation from nonischemic myocardial injury
No chest pain so unclear why nitroglycerin was given on route to hospital
EKG shows ST depressions in leads V4 to V6
Appreciate cardiology input, repeat echo shows mild worsening of , suspect symptoms are secondary to COVID
Cardiology has signed off
#Hypotension secondary to nitroglycerin by EMS
Resolved
#Weakness
PT/OT - no needs
Moderate aortic stenosis
-Patient follows Dr. Will
Essential hypertension
-Resumed lisinopril, nifedipine, spironolactone
-Hold Coreg
Underweight, BMI 17.7
-Encourage oral intale
Anxiety
Glaucoma/macular degeneration
-Continue eyedrops
Former smoker
DVT prophylaxis�subcu Lovenox
Full code
Updated at bedside 06/20
Left message on phone 06/22
Total time spent to see the patient on the floor, examine the patient, review data and lab results, discuss treatment plan with patient, nursing staff around 51 minutes.
Physical Exam
General: Appears to not feel well, no acute distress
HEENT: Normocephalic, Atraumatic, EOMI, MMM
Respiratory: Diffuse scattered wheezing
Cardiac: Normal S1/S2, Regular Rate and Rhythm
GI: Soft, Nontender, Nondistended, Normal Bowel Sounds
Extremities: No Clubbing, Cyanosis
Neuro: Nonfocal/Grossly Intact
Psych: Calm, Cooperative
Anticipated Discharge: 24 - 48 hours
Subjective/Interval History
-
Date of Service: June 21, 2024
Patient continues to cough, and feels short of breath. No fever, no vomiting.
Objective Data
-
Vital Signs:
Vital Signs
Temp Pulse Resp BP Pulse Ox
98.1 F 76 18 137/77 95
06/21/24 11:35 06/21/24 11:35 06/21/24 11:35 06/21/24 11:35 06/21/24 11:35
I&O
06/20/24 06/21/24 06/22/24
06:59 06:59 06:59
Intake Total 220 / 220 720 / 720
Balance 220 / 220 720 / 720
[2024-06-22] MEDS: ROCEPHIN 1000 MG IV (08:48)
[2024-06-22 11:20] VITALS: BP 115/57
[2024-06-22] MEDS: DECADRON 6 MG IV (11:42)
[2024-06-22] MEDS: NSS IV (12:02)
[2024-06-22] MEDS: ProAIR HFA INHALER 2 PUFF INH (15:22)
--- NOTE | 2024-06-22 15:22 | CM ---
Reviewed the chart notes. Patient continues on supplemental O2. Will need to follow for potential home O2 needs if unable to wean. CM continues to be available to patient/family and is monitoring medical plan for needs at discharge.
Plan: Discharge plans will depend on the patient's progress.
[2024-06-22 15:26] VITALS: BP 137/71
[2024-06-22] MEDS: LOVENOX 30 MG SC (17:42)
[2024-06-22 19:23] VITALS: BP 156/63
[2024-06-22] MEDS: TYLENOL 650 MG PO (20:10)
[2024-06-22] MEDS: TUMS CHEWABLE TABLET 200 MG PO (20:12)
[2024-06-22] MEDS: XALATAN OPHTHALMIC SOLUTION 1 DROP BOTH EYES (21:55)
[2024-06-22 23:19] VITALS: BP 157/69
[2024-06-23] MEDS: ANESTHETIC LOZENGE PO ×5 (01:37→19:34)
[2024-06-23 03:49] VITALS: BP 111/93
[2024-06-23 07:45] VITALS: BP 172/90
[2024-06-23] MEDS: PROCARDIA XL (EXTENDED RELEASE) 30 MG PO (08:39)
[2024-06-23] MEDS: MUCINEX 1200 MG PO ×2 (08:39→19:34)
[2024-06-23] MEDS: LIPITOR 40 MG PO (08:39)
[2024-06-23] MEDS: ASPIR LOW (ENTERIC COATED) 81 MG PO (08:40)
[2024-06-23] MEDS: ZESTRIL 20 MG PO ×2 (08:46→19:34)
[2024-06-23] MEDS: COSOPT EYE DROPS 1 DROP BOTH EYES ×2 (08:46→19:34)
[2024-06-23] MEDS: ALDACTONE 50 MG PO (08:47)
[2024-06-23] MEDS: ANESTHETIC LOZENGE 1 LOZENGE PO (08:48)
[2024-06-23] MEDS: ROCEPHIN 1000 MG IV (08:50)
--- NOTE | 2024-06-23 09:19 | W.PN.HOSP.TC ---
Today's Communication/Plan
-
Discharge tomorrow
Assessment / Plan
Assessment / Plan
HPI: 79-year-old female past medical history of aortic stenosis, hypertension, anxiety, glaucoma/macular degeneration, presented to the emergency room for difficulty breathing that started this morning. She developed a sore throat and dry cough 2
days ago which has gotten worse. Cough is productive of purulent sputum. She denies any fevers or chills. Denies any chest pain or upper back pain. No sick contacts. Significant rhonchi were heard by EMS and 3 sublingual nitroglycerin were
given en route. On arrival patient is hypotensive. Patient denies nausea or vomiting diarrhea or abdominal pain.
#Acute hypoxic respiratory failure
#Acute coronavirus pneumonia
Status post remdesivir x 3 days
Currently getting 5th dose of Decadron, will discontinue afterwards since patient is on room air today
Was initially requiring 5 L of oxygen, now on RA
Procalcitonin elevated, continue Rocephin day 2 to cover for bacterial superinfection
Patient does not wear oxygen at home
Continue bronchodilators, supportive care
Isolate through 06/28
Plan for discharge home tomorrow on oral antibiotics
#Loose stools
Likely from antibiotics
Start probiotic
#Troponin elevation from nonischemic myocardial injury
No chest pain so unclear why nitroglycerin was given on route to hospital
EKG shows ST depressions in leads V4 to V6
Appreciate cardiology input, repeat echo shows mild worsening of , suspect symptoms are secondary to COVID
Cardiology has signed off
#Hypotension secondary to nitroglycerin by EMS
Resolved
#Weakness
PT/OT - no needs
Moderate aortic stenosis
-Patient follows Dr. Will
Essential hypertension
-Resumed lisinopril, nifedipine, spironolactone
-Hold Coreg -can resume upon discharge
Underweight, BMI 17.7
-Encourage oral intale
Anxiety
Glaucoma/macular degeneration
-Continue eyedrops
Former smoker
DVT prophylaxis�subcu Lovenox
Full code
Updated at bedside 06/20
Left message on phone 06/22
Updated on phone 06/23
Total time spent to see the patient on the floor, examine the patient, review data and lab results, discuss treatment plan with patient, nursing staff around 50 minutes.
Physical Exam
General: Appears to not feel well, no acute distress
HEENT: Normocephalic, Atraumatic, EOMI, MMM
Respiratory: Minimal scattered wheezing
Cardiac: Normal S1/S2, Regular Rate and Rhythm
GI: Soft, Nontender, Nondistended, Normal Bowel Sounds
Extremities: No Clubbing, Cyanosis
Neuro: Nonfocal/Grossly Intact
Psych: Appears anxious
Anticipated Discharge: Within 24 hours
Subjective/Interval History
-
Date of Service: June 23, 2024
Patient reports that her breathing and cough are better. She complains of loose stools. No fever, no vomiting.
Objective Data
-
Vital Signs:
Vital Signs
Temp Pulse Resp BP Pulse Ox
97.3 F 82 16 172/90 96
06/23/24 07:45 06/23/24 08:47 06/23/24 07:45 06/23/24 08:47 06/23/24 07:45
I&O
06/22/24 06/23/24 06/24/24
06:59 06:59 06:59
Intake Total 720 / 720 720 / 720
Balance 720 / 720 720 / 720
[2024-06-23] MEDS: VISBIOME 2 CAP PO (10:26)
[2024-06-23] MEDS: DECADRON 6 MG IV (12:26)
[2024-06-23 15:19] VITALS: BP 146/76
--- NOTE | 2024-06-23 16:05 | CM ---
Reviewed the chart notes and spoke with the patient via room telephone. IMM reviewed. Patient with no questions. Patient offered VN, declined. CM continues to be available to patient/family and is monitoring medical plan for needs at discharge.
Plan: Discharge to home when medically stable. No needs identified. Patient declined offer of VN.
[2024-06-23] MEDS: KCL 10 MEQ PO (16:46)
[2024-06-23] MEDS: LOVENOX 30 MG SC (17:56)
[2024-06-23] MEDS: TUMS CHEWABLE TABLET 200 MG PO (18:04)
[2024-06-23] MEDS: XALATAN OPHTHALMIC SOLUTION 1 DROP BOTH EYES (21:45)
[2024-06-23 23:15] VITALS: BP 186/71
[2024-06-23 23:20] VITALS: BP 214/102
[2024-06-23] MEDS: APRESOLINE 5 MG IV (23:43)
[2024-06-24] MEDS: ANESTHETIC LOZENGE PO ×4 (00:22→11:50)
[2024-06-24 00:45] VITALS: BP 198/92
[2024-06-24] MEDS: APRESOLINE 5 MG IV (01:01)
[2024-06-24 02:30] VITALS: BP 172/92
--- NOTE | 2024-06-24 04:51 | PTCARENOTE ---
Pt BP 214/102 manually. Notified SPOUT POSITIONER, 5mg Hydralazine IV ordered and administered. Recheck an hour later, BP 198/92 manually. Another 5 mg Hydralazine IV ordered and administered. See DEC. Recheck BP 172/92 manual. SPOUT POSITIONER aware, no new orders at this
time.
[2024-06-24 07:45] VITALS: BP 190/103
--- NOTE | 2024-06-24 08:52 | W.PN.HOSP.TC ---
Today's Communication/Plan
-
Increase Procardia from 30 mg daily to 30 mg twice a day
Discharge today
Assessment / Plan
Assessment / Plan
HPI: 79-year-old female past medical history of aortic stenosis, hypertension, anxiety, glaucoma/macular degeneration, presented to the emergency room for difficulty breathing that started this morning. She developed a sore throat and dry cough 2
days ago which has gotten worse. Cough is productive of purulent sputum. She denies any fevers or chills. Denies any chest pain or upper back pain. No sick contacts. Significant rhonchi were heard by EMS and 3 sublingual nitroglycerin were
given en route. On arrival patient is hypotensive. Patient denies nausea or vomiting diarrhea or abdominal pain.
#Acute hypoxic respiratory failure
#Acute coronavirus pneumonia
Was initially requiring 5 L of oxygen, now on RA
S/p remdesivir x 3 days
S/p decadron x 5 days
Procalcitonin elevated, status post Rocephin x 3 days
Medically stable for discharge on cefdinir to complete a 7-day course
Patient does not wear oxygen at home
Continue bronchodilators, supportive care
Isolate through 06/28
#Loose stools
Likely from antibiotics
Started probiotic
#Troponin elevation from nonischemic myocardial injury
No chest pain so unclear why nitroglycerin was given on route to hospital
EKG shows ST depressions in leads V4 to V6
Appreciate cardiology input, repeat echo shows mild worsening of , suspect symptoms are secondary to COVID
Cardiology has signed off
#Hypotension secondary to nitroglycerin by EMS
Resolved
#Weakness
PT/OT - no needs
Moderate aortic stenosis
-Patient follows Dr. Will
Essential hypertension
-Resumed lisinopril, nifedipine, spironolactone
-Resume Coreg upon dc
-Blood pressure elevated at night, increase nifedipine from 30 mg daily to 30 mg twice a day
Underweight, BMI 17.7
-Encourage oral intale
Anxiety
Glaucoma/macular degeneration
-Continue eyedrops
Former smoker
DVT prophylaxis�subcu Lovenox
Full code
Updated at bedside 06/20
Left message on phone 06/22
Updated on phone 06/23
Physical Exam
General: Appears to not feel well, no acute distress
HEENT: Normocephalic, Atraumatic, EOMI, MMM
Respiratory: Minimal scattered wheezing
Cardiac: Normal S1/S2, Regular Rate and Rhythm
GI: Soft, Nontender, Nondistended, Normal Bowel Sounds
Extremities: No Clubbing, Cyanosis
Neuro: Nonfocal/Grossly Intact
Psych: Appears anxious
Anticipated Discharge: Today
Subjective/Interval History
-
Date of Service: June 24, 2024
Patient feels weak. Her breathing has improved. Continues to cough. No fever, no vomiting.
Objective Data
-
Vital Signs:
Vital Signs
Temp Pulse Resp BP Pulse Ox
98.2 F 89 16 190/103 95
06/24/24 07:45 06/24/24 07:45 06/24/24 07:45 06/24/24 07:45 06/24/24 07:45
I&O
06/23/24 06/24/24 06/25/24
06:59 06:59 06:59
Intake Total 720 / 720 1080 / 1080
Balance 720 / 720 1080 / 1080
[2024-06-24] MEDS: LIPITOR 40 MG PO (08:57)
[2024-06-24] MEDS: ASPIR LOW (ENTERIC COATED) 81 MG PO (08:57)
[2024-06-24] MEDS: PROCARDIA XL (EXTENDED RELEASE) 30 MG PO (08:57)
[2024-06-24] MEDS: VISBIOME 2 CAP PO (09:00)
[2024-06-24] MEDS: ALDACTONE 50 MG PO (09:00)
[2024-06-24] MEDS: ZESTRIL 20 MG PO (09:00)
[2024-06-24] MEDS: MUCINEX 1200 MG PO (09:00)
[2024-06-24] MEDS: ROCEPHIN 1000 MG IV (09:01)
[2024-06-24] MEDS: COSOPT EYE DROPS 1 DROP BOTH EYES (09:02)
[2024-06-24] MEDS: TYLENOL 650 MG PO (09:08)
[2024-06-24 11:01] VITALS: BP 122/72
--- NOTE | 2024-06-24 12:34 | CM ---
Reviewed the chart notes. Patient discharged to home today. No needs. Patient's spouse will provide transportation. CM continues to be available to patient/family and is monitoring medical plan for needs at discharge.
Plan: Discharge to home.
--- NOTE | 2024-06-24 14:28 | W.DCSUMMARY ---
Discharge Summary
Discharge Data
Date of Admission: 06/19/24
Date of Discharge: 06/24/24
-
Pending Results: No
Hospital Course
Discharge diagnosis:
Acute hypoxic respiratory failure
Acute coronavirus pneumonia
Loose stools from antibiotics
Nonischemic myocardial injury troponin elevation
Moderate aortic stenosis
Hypotension secondary to nitroglycerin
Weakness
Anxiety
Former smoker
Underweight
Consults: Cardiology
Chest x-ray:
Minor bibasilar opacity suggesting subsegmental atelectasis. Cannot exclude pneumonia/pneumonitis.
Echocardiogram:
Normal left ventricular size and systolic function. No regional wall motion
abnormalities are seen. LV ejection fraction is 60-65% by visual assessment.
Mild concentric LVH.
Thickened aortic valve with restricted leaflet motion. Moderate aortic
stenosis. Peak/mean gradients are 57/29 mmHg. The valve area by continuity
equation is 0.9 cm sq, using a LVOT of 1.8 cm. Mild aortic regurgitation.
Structurally normal tricuspid valve. Tricuspid valve opens normally. Mild
tricuspid regurgitation. Estimated pulmonary artery pressure of 43 mmHg.
Assuming a right atrial pressure of 3 mmHg.
Since echocardiogram 08/11/2023, there is no significant change. Aortic
stenosis may have worsened slightly from mild-moderate to moderate. Mean
pressure gradient increased slightly from 23 mmHg to 29 mmHg.
Hospital course:
79-year-old female with a past medical history of hyperlipidemia, hypertension, former smoker, anxiety, and aortic stenosis was admitted for acute hypoxic respiratory failure secondary to acute coronavirus pneumonia. Patient initially required 5 L
of oxygen in the ER. She was treated with IV remdesivir and IV dexamethasone. She was successfully weaned off of oxygen. She received 3 days of remdesivir, 5 days of Decadron, and does not need any steroids upon discharge..
Patient was hypotensive upon admission from receiving nitroglycerin by EMS. Her hypotension resolved with IV fluids. Her blood pressure trended up, and she was resumed on her home regimen of lisinopril 20 mg twice daily, Coreg 6.25 mg twice
daily, spironolactone 50 mg daily, nifedipine 30 mg daily. She continued to have intermittent spikes of high blood pressure, especially at night. Her nifedipine will be increased to 30 mg twice a day.
Patient had an elevated troponin and ST depression on her EKG upon admission. She was seen in conjunction with cardiology, who suspects nonischemic myocardial injury from the COVID. She does have aortic stenosis. Repeat echocardiogram shows
moderate aortic stenosis. 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
Patient had an elevated procalcitonin. She received IV Rocephin for bacterial superinfection.
Patient also had weakness. She was seen in conjunction with PT/OT, and did not have any needs upon discharge.
Patient is medically stable for discharge. She will be discharged on cefdinir to complete a 7-day course to cover for possible bacterial superinfection. She needs to isolate through 06/28/2024 for her coronavirus. She can follow-up with her
primary care doctor on 06/29/2024.
Disposition: Home self-care
Discharge planning: Required 41 minutes
Discharge Plan
-
Patient Disposition: Home (Routine Discharge)
Discharge Diagnosis/Procedures: Acute hypoxic respiratory failure, acute coronavirus pneumonia, loose stools, uncontrolled hypertension
Condition: Good
Diet: Low Fat and Low Cholesterol
Activity Restrictions/Additional Instructions:
Rest, drink plenty of fluids. Isolate through 06/28.
You have been prescribed antibiotics to cover for possible bacterial superinfection.
Your blood pressure was high at night, your nifedipine was increased from 30 mg daily to 30 mg twice a day.
Follow-up with your primary care doctor 06/29.
Referrals:
Isac Jane MD [Family Provider] - in one week
Prescriptions:
New
cefdinir 300 mg capsule
300 mg PO BID 4 Days Qty: 8 0RF
Continued
aspirin 81 mg Tablet,Delayed Release (Dr/Ec)
81 mg PO DAILY Qty: 60 0RF
carvedilol 6.25 mg tablet
6.25 mg PO BID Qty: 60 0RF
lisinopril 20 mg tablet
20 mg PO BID
latanoprost 0.005 % Drops
1 drp BOTH EYES HS
dorzolamide-timolol 22.3-6.8 mg/mL Drops
1 drp BOTH EYES BID
spironolactone 50 mg Tablet
50 mg PO DAILY
atorvastatin 40 mg tablet
40 mg PO DAILY
Changed
nifedipine 30 mg tablet extended release
30 mg PO BID Qty: 60 0RF
Discharge Orders:
Discharge Patient (As Directed); Ordered 06/24/24
Ordered By: Chuck Santos
Discharge Date and Time
Discharge Date/Time: 06/24/24 13:19
Print Language: BELARUSIAN
== END 2024-06-24 13:19 | disposition home or self-care (01) | DRG 177 ==
LOC: 2 NORTH 12:55
PROVIDERS: Physician Assistant; ADMITTING PHYSICIAN Hospitalist; ATTENDING PHYSICIAN Family Medicine; EMERGENCY PHYSICIAN Emergency Medicine; FAMILY PHYSICIAN Internal Medicine; OTHER PHYSICIAN Internal Medicine Cardiovascular Disease
PROC: 5A0935A Assistance with Respiratory Ventilation, Less than 24 Consecutive Hours, High Flow/Velocity Cannula (ICD-10-PCS; 2024-06-19)
PROC: XW033E5 Introduction of Remdesivir Anti-infective into Peripheral Vein, Percutaneous Approach, New Technology Group 5 (ICD-10-PCS; 2024-06-19)
DX: U07.1 COVID-19 (principal); J12.82 Pneumonia due to coronavirus disease 2019; J96.01 Acute respiratory failure with hypoxia; I5A Non-ischemic myocardial injury (non-traumatic); Z68.1 Body mass index [BMI] 19.9 or less, adult; K52.1 Toxic gastroenteritis and colitis; I50.30 Unspecified diastolic (congestive) heart failure; I11.0 Hypertensive heart disease with heart failure; I35.0 Nonrheumatic aortic (valve) stenosis; I95.2 Hypotension due to drugs; T46.3X5A Adverse effect of coronary vasodilators, initial encounter; T36.95XA Adverse effect of unspecified systemic antibiotic, initial encounter; F41.9 Anxiety disorder, unspecified; E78.5 Hyperlipidemia, unspecified; H35.30 Unspecified macular degeneration; H40.9 Unspecified glaucoma; R63.6 Underweight; Z79.82 Long term (current) use of aspirin; Z79.899 Other long term (current) drug therapy; Z87.81 Personal history of (healed) traumatic fracture; Z87.891 Personal history of nicotine dependence
CPT/HCPCS: 71045; 80048; 80053; 83735; 83880; 84145; 84484; 85025; 87502; 87811; 93005; 93306; 94640; 96361; 96374; 96375; 97162; 97166; 99291; J0248

== ENCOUNTER 2024-09-21 12:20 | Emergency (ER) | payer MEDICARE, OTHER, SELFPAY ==
[2024-09-21 12:20] VITALS: BMI 18.0
[2024-09-21 12:22] VITALS: BP 117/60
[2024-09-21 12:37] LABS: % Basophils 1.5 % (0-2); % Eosinophils 3.2 % (0-6); % Immature Granulocytes 0.1 % (0-0.5); % Lymphocytes 18.4 % (20.5-51.1); % Monocytes 11.4 % (1.7-9.3); % Neutrophils 65.4 % (42.2-75.2); Absolute Basophils 0.1 10^3/uL (0-0.2); Absolute Eosinophils 0.2 10^3/uL (0-0.7); Absolute Lymphocytes 1.3 10^3/uL (1.2-3.4); Absolute Monocytes 0.8 10^3/uL (0.1-0.6); Absolute Neutrophils 4.4 10^3/uL (1.4-6.5); Hematocrit 41.5 % (37.0-47.0); Hemoglobin 13.5 g/dL (12.0-16.0); Mean Corp Hgb Conc. 32.5 g/dL (33.0-37.0); Mean Corpuscular Hgb 28.9 pg (27.0-31.0); Mean Corpuscular Volume 88.9 fL (81.0-99.0); Mean Platelet Volume 9.9 fL (7.4-10.4); Nucleated Red Blood Cells % 0 %; Platelet Count 225 10^3/uL (130-400); Red Blood Cell Count 4.67 10^6/uL (4.20-5.40); Red Cell Dist. Width 14.6 % (11.5-14.5); White Blood Cell Count 6.8 10^3/uL (4.8-10.8)
[2024-09-21 13:09] LABS: Albumin 3.9 g/dl (3.5-5.0); Alkaline Phosphatase 82 U/L (38-126); Blood Urea Nitrogen 14 mg/dl (7-17); Calcium 9.2 mg/dl (8.4-10.2); Carbon Dioxide 26 mmol/L (22-30); Chloride 104 mmol/L (98-107); Glucose 133 mg/dl (70-99); Potassium 3.6 mmol/L (3.5-5.1); Sodium 141 mmol/L (135-145); Total Protein 6.3 g/dl (6.3-8.2); eGFR > 60.00
[2024-09-21 13:10] LABS: ALT (SGPT) 14 U/L (0-35); AST (SGOT) 23 U/L (14-36); Total Bilirubin 0.8 mg/dl (0.2-1.3)
[2024-09-21 13:14] LABS: Troponin I < 0.012 ng/ml
--- NOTE | 2024-09-21 13:55 | ED.GENMED ---
History of Present Illness
General
Chief Complaint: Fainting Sensation
Source: patient
Exam Limitations: none
Time Seen by Provider: 09/21/24 13:40
History of Present Illness
History of Present Illness:
See MDM
Past History
Past History
ED Past Medical History: CVA, HTN, Psychiatric (anxiety) and Other (Glaucoma/macular degeneration)
ED Past Surgical History: Orthopedic (elbow fracture repair)
Patient has exhibited threatening behavior?: No
PSI?: No
Social History
Tobacco: Non-smoker
Alcohol: None
Drug: None
Personal:
Living: with family
Employment: Retired
Phy Exam
Physical Exam
Physical Exam:
See MDM
Course
Orders/Labs/Results
Orders:
Orders
09/21/24 12:23
Electrocardiogram (*1) Urgent
Reason for Study: Chest Pain
EKG- Treatment ONCE
IV Insert/Care/Rem.- Treatment PRN
09/21/24 12:28
Complete Blood Count/With Diff Urgent
Comprehensive Metabolic Panel Urgent
Troponin I Urgent
Abnormal Lab Results
09/21/24
12:28
MCHC 32.5 L g/dL
(33.0-37.0)
RDW 14.6 H %
(11.5-14.5)
Absolute Monos (auto) 0.8 H 10^3/uL
(0.1-0.6)
Lymphocytes % 18.4 L %
(20.5-51.1)
Monocytes % 11.4 H %
(1.7-9.3)
Glucose 133 H mg/dl
(70-99)
09/21/24 12:28
09/21/24 12:28
Vital Signs
Initial and Last Documented VS:
Initial Vital Signs
Temp Pulse Resp BP Pulse Ox
97.5 F 66 14 117/60 96
09/21/24 12:22 09/21/24 12:22 09/21/24 12:22 09/21/24 12:22 09/21/24 12:22
Last Documented Vital Signs
Temp Pulse Resp BP Pulse Ox
97.5 F 66 14 117/60 96
09/21/24 12:22 09/21/24 12:22 09/21/24 12:22 09/21/24 12:22 09/21/24 12:22
MDM/Problems Addressed
Differential Diagnosis Includes:
HPI and MDM Narrative:
79-year-old female presenting for evaluation of near syncope. was clipping her nails while they were standing. Patient developed a fainting sensation and she lowered herself to the ground. She does acknowledge that the symptoms have been
more frequent ever since she was diagnosed with a stroke a few years ago. states that her blood pressure has been running low. Patient believes that she is on too much medication. Upon further questioning, it appears that she becomes near
syncopal when she stands quickly or perform sudden movements. I question whether or not she is drinking water. Patient states she never drinks water. Patient states she drinks coffee, Pepsi and ice tea. I discussed importance of appropriate
fluid hydration. She is orthostatic when I stand her up quickly. Her workup is negative in regards to blood work and EKG. I did discuss that this could potentially be a cardiac arrhythmia. Since her symptoms are more frequently occurring during
the mid afternoon after she takes her medicines, we discussed changing her lisinopril to nighttime instead of twice daily
Physical exam
General: Well appearing and non-toxic
HEENT: protecting airway. Dry mucous membranes
Neck: appears supple
CV: No evidence of cyanosis. Regular rate and rhythm
Resp: No accessory muscle use
Abd: Non-distended
Extremities: No deformities
Neuro: alert. Normal finger-nose bilaterally
Psych: Normal affect
Skin: Intact
Problems Addressed including Acute and Chronic Conditions affecting care:
1. Near Syncope
Acuity: acute
Prognosis: stable
Details: Likely in setting of orthostasis. Patient states she will drink more water. We discussed changing her lisinopril to nighttime rather than twice daily. Patient understands that she must have this further evaluated by her PC
EKG does show minor ST depressions laterally but she denies any chest pain or shortness of breath. Patient denies any active complaints.
Differential Diagnosis (but not limited to): Near syncope, cardiac arrhythmia, dehydration
Testing considered: CT head but she denies trauma and there is no focal neurodeficits
Drug therapy (if applicable): OTC meds, please see d/c instruction regarding Rx drugs
Amount and/or Complexity of Data Reviewed
Clinical info obtained from: Patient
External data reviewed: N/A
Labs I independently reviewed (but not limited to): Troponin normal
Radiology: N/A
Pulse Ox: not hypoxic
EKG independently reviewed: Sinus rhythm, normal axis, no STEMI. ST depressions laterally which have been seen on prior EKG
Ip Counsel: N/A
Critical Care: N/A
Risk of Complication:
Social Determinants of health: Good social support
Discussed with other providers: N/A
Escalation of Care includes Admit/Obs: After being observed in the Emergency Department, pt stable for discharge.
Occasional wrong word or 'sound a like' substitutions may have occurred due to the inherent limitations of voice recognition software. Read the chart carefully and recognize, using context, where substitutions have occurred.
*Critical Care Note
Total Time (30-74mins, 75-104mins- exclusive of procedures): Not Applicable
ED Attending Note
-
Portions of this chart may have been created with voice recognition software.� Occasional wrong word or��sound alike� substitutions may have occurred due to the inherent limitations of voice recognition software.
Discharge Plan
Departure
Patient Disposition: Home (Routine Discharge)
Date of Disposition: 09/21/24
Time of Disposition: 14:15
Patient with high blood pressure during this ER visit?: No
Discharge Problem:
Near syncope
Instructions: Near Fainting (DC)
Prescriptions:
No Action
aspirin 81 mg Tablet,Delayed Release (Dr/Ec)
81 mg PO DAILY Qty: 60 0RF
carvedilol 6.25 mg tablet
6.25 mg PO BID Qty: 60 0RF
lisinopril 20 mg tablet
20 mg PO BID
latanoprost 0.005 % Drops
1 drp BOTH EYES HS
dorzolamide-timolol 22.3-6.8 mg/mL Drops
1 drp BOTH EYES BID
spironolactone 50 mg Tablet
50 mg PO DAILY
atorvastatin 40 mg tablet
40 mg PO DAILY
cefdinir 300 mg capsule
300 mg PO BID 4 Days Qty: 8 0RF
nifedipine 30 mg tablet extended release
30 mg PO BID Qty: 60 0RF
Referrals:
Isac Jane MD [Family Provider] -
Activity Restrictions/Additional Instructions:
Please return for any worsening symptoms.
You may return at any time if you have further concerns.
Your symptoms could be related to dehydration (drink more water) and possibly related to too much blood pressure medicine. Since majority of your lightheadedness episodes occur after all of your morning meds, please stop taking your lisinopril
during the day. You can continue your evening lisinopril dose. Please have this further assessed by your primary care doctor..
Please follow up with your doctor at the first available appointment, preferably this week.
Thank you for choosing [facility].
Interventions
Interventions:
*Risk Screen - Suicide Last Done: 09/21/24 12:22
*General Assessment Last Done: 09/21/24 12:22
*Neglect/Abuse Screening Last Done: 09/21/24 12:22
Discharge Date and Time
Print Language: FAROESE
[2024-09-21 14:20] VITALS: BP 139/89
== END 2024-09-21 14:20 | disposition home or self-care (01) ==
LOC: EMR 12:20
PROVIDERS: Physician Assistant; EMERGENCY PHYSICIAN Student in an Organized Health Care Education/Training Program; FAMILY PHYSICIAN Internal Medicine
DX: R55 Syncope and collapse (principal); I10 Essential (primary) hypertension; Z86.73 Personal history of transient ischemic attack (TIA), and cerebral infarction without residual deficits; Z79.899 Other long term (current) drug therapy
CPT/HCPCS: 99284; 80053; 84484; 85025; 93005

== ENCOUNTER → 2025-02-20 07:00 | Outpatient (REF) | payer MEDICARE, OTHER, SELFPAY ==
[2025-02-20 08:15] LABS: ALT (SGPT) 14 U/L (0-35); AST (SGOT) 22 U/L (14-36); Albumin 3.8 g/dl (3.5-5.0); Alkaline Phosphatase 81 U/L (38-126); Direct Bilirubin 0.3 mg/dl (0.0-0.4); HDL Cholesterol 76 mg/dl; LDL Cholesterol, Calculated 59 mg/dl; Total Bilirubin 0.9 mg/dl (0.2-1.3); Total Cholesterol 151 mg/dl (50-199); Total Protein 6.1 g/dl (6.3-8.2); Triglyceride 83 mg/dl (10-149); Very Low Density Lipoprotein 16 mg/dl (0-30)
== END ==
LOC: REG 07:00
PROVIDERS: ATTENDING PHYSICIAN Internal Medicine
DX: E78.5 Hyperlipidemia, unspecified (principal)
CPT/HCPCS: 36415; 80061; 80076

== ENCOUNTER → 2025-06-08 06:54 | Outpatient (REF) | payer MEDICARE, OTHER, SELFPAY ==
[2025-06-08 07:50] LABS: Hematocrit 40.9 % (37.0-47.0); Hemoglobin 13.1 g/dL (12.0-16.0); Mean Corp Hgb Conc. 32.0 g/dL (33.0-37.0); Mean Corpuscular Volume 89.7 fL (81.0-99.0); Nucleated Red Blood Cells % 0 %; Platelet Count 226 10^3/uL (130-400); Red Cell Dist. Width 14.4 % (11.5-14.5)
[2025-06-08 08:11] LABS: ALT (SGPT) 13 U/L (0-35); AST (SGOT) 22 U/L (14-36); Albumin 3.9 g/dl (3.5-5.0); Alkaline Phosphatase 79 U/L (38-126); Blood Urea Nitrogen 13 mg/dl (7-17); Calcium 9.2 mg/dl (8.4-10.2); Carbon Dioxide 31 mmol/L (22-30); Chloride 109 mmol/L (98-107); Glucose 89 mg/dl (70-99); HDL Cholesterol 75 mg/dl; LDL Cholesterol, Calculated 61 mg/dl; Potassium 3.8 mmol/L (3.5-5.1); Sodium 144 mmol/L (135-145); Total Protein 6.1 g/dl (6.3-8.2); Very Low Density Lipoprotein 15 mg/dl (0-30); eGFR > 60.00
== END ==
LOC: REG 06:54
PROVIDERS: ATTENDING PHYSICIAN Internal Medicine
DX: Z00.01 Encounter for general adult medical examination with abnormal findings (principal); E78.2 Mixed hyperlipidemia; I10 Essential (primary) hypertension
CPT/HCPCS: 36415; 80053; 80061; 85025

== ENCOUNTER → 2025-07-10 12:54 | Outpatient (REF) | payer MEDICARE, OTHER, SELFPAY | LOC: RCS 12:54 | PROVIDERS: ATTENDING PHYSICIAN Internal Medicine Cardiovascular Disease; FAMILY PHYSICIAN Internal Medicine | DX: I35.0 Nonrheumatic aortic (valve) stenosis (principal) | CPT/HCPCS: 93306 ==